=== PATIENT | female | born 1960 | race Caucasian/White ===

== ENCOUNTER → 2017-01-22 | Outpatient (CLI) | payer BC ==
[~2017-01-22] MED LIST: DICY20TA3 PO; LEVO112T4 PO; LISI1TAB5 PO; OMEP-110 PO
[2017-01-22 12:51] LABS: ASPARTATE AMINO TRANSFERASE 29 U/L (15-37); BLOOD UREA NITROGEN 21 mg/dL (7-18)
== END | disposition home or self-care (01) ==
LOC: STAR 11:17
PROVIDERS: ATTEND Surgery
DX: Z01.818 Encounter for other preprocedural examination (principal); R94.31 Abnormal electrocardiogram [ECG] [EKG]; C50.511 Malignant neoplasm of lower-outer quadrant of right female breast
CPT/HCPCS: 36415; 80053; 93005

== ENCOUNTER 2017-01-29 07:58 | Day surgery (SDC) | payer BC ==
[~2017-01-29] VITALS: Ht 168.9 cm; Wt 101.4 kg
[2017-01-29] MEDS ORDERED: LIDOCAINE 1%, 20ML ONE (09:00)
[2017-01-29 09:25] VITALS: BP 134/82
[2017-01-29] MEDS ORDERED: LACTATED RINGERS 1,000 ML IV SCH (09:40)
[2017-01-29] MEDS ORDERED: SCOPOLAMINE PATCH, 1.5MG PATCH.TD72 TD ONE ×2 (10:02)
[2017-01-29] MEDS ORDERED: CEFAZOLIN 1,000 MG ONE ×2 (10:04→16:45)
[2017-01-29] MEDS ORDERED: ISOSULFAN BLUE 10 MG/ML, 5ML IV ONE (10:04)
[2017-01-29] MEDS ORDERED: GENTAMICIN 80 MG/2 ML ONE (10:04)
[2017-01-29] MEDS ORDERED: BACITRACIN 50,000 UNIT ONE (10:04)
[2017-01-29] MEDS ORDERED: EPINEPHRINE 1 MG/ML, 1ML ONE (10:04)
[2017-01-29] MEDS ORDERED: BUPIVACAINE/PF 0.5% ONE (10:04)
[2017-01-29] MEDS ORDERED: FENTANYL PF 250 MCG/5ML ONE (10:59)
[2017-01-29] MEDS ORDERED: MIDAZOLAM 1 MG/ML, 2ML ONE (10:59)
[2017-01-29] MEDS ORDERED: BUPIVACAINE/PF 0.25% ONE (11:21)
[2017-01-29] MEDS ORDERED: HYDROmorphone 1 MG/ML, 1ML IV PRN (12:30)
[2017-01-29] MEDS ORDERED: FENTANYL PF 100 MCG/2ML IV PRN (12:30)
[2017-01-29] MEDS ORDERED: PROMETHAZINE 25 MG/ML, 1ML IV PRN (12:30)
[2017-01-29] MEDS ORDERED: LABETALOL 5MG/ML, 20ML IV PRN (12:30)
[2017-01-29] MEDS ORDERED: MEPERIDINE/PF 25MG/0.5ML IVPush PRN (12:30)
[2017-01-29] MEDS ORDERED: MIDAZOLAM 1 MG/ML, 2ML IV PRN (12:30)
[2017-01-29] MEDS ORDERED: OXYcodone 5 MG/5 ML ORAL.SOL UDC PO PRN (12:30)
[2017-01-29] MEDS ORDERED: HYDROcodone/APAP 7.5-325MG/15ML UDC PO PRN (12:30)
[2017-01-29] MEDS ORDERED: ACETAMINOPHEN 325 MG TABLET PO PRN (12:30)
[2017-01-29] MEDS ORDERED: hydrALAzine 20 MG/ML, 1ML IV PRN (12:30)
[2017-01-29] MEDS ORDERED: ONDANSETRON 2MG/ML, 2ML IVPush PRN (12:30)
[2017-01-29] MEDS ORDERED: EPHEDRINE 50 MG/ML, 1ML IVPush PRN (12:30)
[2017-01-29] MEDS ORDERED: ACETAMINOPHEN 650 MG/20.3 ML UDC ONE (13:13)
[2017-01-29] MEDS ORDERED: OXYcodone 5 MG/5 ML ORAL.SOL UDC ONE (13:14)
[2017-01-29] MEDS ORDERED: HYDROmorphone 2 MG/ML, 1ML ONE (13:23)
[2017-01-29] MEDS ORDERED: PROMETHAZINE 25 MG/ML, 1ML ONE (13:26)
[2017-01-29] MEDS ORDERED: NEOSTIGMINE 1 MG/ML, 10ML ONE (16:45)
[2017-01-29] MEDS ORDERED: DEXAMETHASONE 4 MG/ML, 1ML ONE (16:45)
[2017-01-29] MEDS ORDERED: PROPOFOL 10 MG/ML, 20ML ONE (16:45)
[2017-01-29] MEDS ORDERED: GLYCOPYRROLATE 0.2MG/1ML ONE (16:45)
[2017-01-29] MEDS ORDERED: ONDANSETRON 2MG/ML, 2ML ONE (16:45)
[2017-01-29] MEDS ORDERED: ROCURONIUM 10 MG/ML ONE (16:45)
== END 2017-01-29 17:05 | disposition home or self-care (01) ==
LOC: CFH 07:58 → EDSTATUS 11:00 → OUT 17:05
PROVIDERS: ATTEND Surgery
DX: C50.511 Malignant neoplasm of lower-outer quadrant of right female breast (principal); N62 Hypertrophy of breast; I10 Essential (primary) hypertension; K21.9 Gastro-esophageal reflux disease without esophagitis; Z88.3 Allergy status to other anti-infective agents; Z88.6 Allergy status to analgesic agent; G51.0 Bell's palsy; E03.9 Hypothyroidism, unspecified; Z90.710 Acquired absence of both cervix and uterus; Z98.890 Other specified postprocedural states; Z72.89 Other problems related to lifestyle; E66.9 Obesity, unspecified; Z68.35 Body mass index [BMI] 35.0-35.9, adult; Z82.49 Family history of ischemic heart disease and other diseases of the circulatory system; Z80.41 Family history of malignant neoplasm of ovary; Z80.3 Family history of malignant neoplasm of breast; Z80.8 Family history of malignant neoplasm of other organs or systems
CPT/HCPCS: 19281; 19301; 19318; 19366; 38525; 38792; 88305; 88307; 88329; 88333; A9541; C1729; J0171; J0690; J1100; J1170; J2250; J2405; J2550; J2704; J2710; J3010; J3490; J7120; J1580

== ENCOUNTER → 2017-03-16 | Outpatient (CLI) | payer BC ==
[~2017-03-16] MED LIST changes: +POTA99TA PO
== END | disposition home or self-care (01) ==
LOC: PETCFH 08:03
PROVIDERS: ATTEND Internal Medicine Hematology & Oncology
DX: C50.311 Malignant neoplasm of lower-inner quadrant of right female breast (principal); Z98.890 Other specified postprocedural states
CPT/HCPCS: 78306; A9503

== ENCOUNTER → 2017-04-30 | Outpatient (CLI) | payer BC ==
[~2017-04-30] MED LIST changes: -POTA99TA PO; +POTA99TA2 PO
== END | disposition home or self-care (01) ==
LOC: CFH 10:54
PROVIDERS: ATTEND Internal Medicine Hematology & Oncology
DX: C50.311 Malignant neoplasm of lower-inner quadrant of right female breast (principal)
CPT/HCPCS: 76536

== ENCOUNTER → 2017-09-16 | Outpatient (CLI) | payer OTHER | END | disposition home or self-care (01) | LOC: EDSTATUS 09-11 15:21 → ROC 15:35 | PROVIDERS: ATTEND Radiology Radiation Oncology | DX: Z08 Encounter for follow-up examination after completed treatment for malignant neoplasm (principal); C50.511 Malignant neoplasm of lower-outer quadrant of right female breast; Z92.3 Personal history of irradiation | CPT/HCPCS: 99212; G0463 ==